=== PATIENT | female | born 1970 ===

== ENCOUNTER → 2022-12-01 | Outpatient (CLI) | payer BC ==
[2022-12-01 08:52] LABS: Urine Bacteria NONE SEEN /hpf (None Seen); Urine Blood Negative /uL (Negative); Urine Mucus FEW (None Seen); Urine Specific Gravity 1.021 (1.001-1.035); Urine WBC 1 /hpf (0 - 5)
[2022-12-01 09:00] LABS: Basophils # (auto) 0 10 ^3/uL (0-0.2); Basophils % (auto) 0.4 % (0.0-2.0); Eosinophils # (auto) 0.1 10 ^3/uL (0-0.8); Eosinophils % (auto) 1.4 % (0.0-7.0); Hematocrit 38.7 % (36.0-46.0); Hemoglobin 13.1 g/dL (12.2-16.2); Mean Corpuscular Hemoglobin 28.5 pg (28.0-32.0); Mean Corpuscular Hgb Conc. 33.8 g/dL (32.0-36.0); Mean Corpuscular Volume 84.3 fL (80.0-100.0); Monocytes # (auto) 0.8 10 ^3/uL (0-1.3); Monocytes % (auto) 7.1 % (0.0-12.0); Neutrophils # (auto) 6.7 10 ^3/uL (1.6-8.6); Neutrophils % (auto) 63.1 % (37.0-80.0); Nucleated Red Blood Cells % 0.1 %; Red Blood Cells 4.59 10^6/uL (4.0-5.20); Red Cell Distribution Width 14.3 % (11.8-14.3); White Blood Cell 10.6 10^3/uL (4.4-10.8)
[2022-12-01 09:50] LABS: Ferritin 31.1 ng/mL (10-322)
[2022-12-01 09:51] LABS: Folate (Folic Acid) 9.47 ng/mL (5.38-24); T3 Total 0.82 ng/mL (0.60-1.81)
[2022-12-01 12:21] LABS: Albumin 3.7 g/dL (3.4-5.0); BUN/Creatinine Ratio 22.5 (10.0-20.0); Calcium 9.2 mg/dL (8.5-10.1)
[2022-12-01 12:24] LABS: Bilirubin, Total 0.4 mg/dL (0.2-1.0); Total Protein 7.8 g/dL (6.4-8.2)
== END | disposition home or self-care (01) ==
LOC: LAB 08:21
PROVIDERS: ATTEND Internal Medicine
DX: E66.01 Morbid (severe) obesity due to excess calories (principal); G35 Multiple sclerosis
CPT/HCPCS: 36415; 80053; 80061; 81001; 82607; 82728; 82746; 83036; 83540; 84436; 84443; 84480; 85025; 87086

== ENCOUNTER → 2024-09-17 | Outpatient (CLI) | payer BC ==
[2024-09-17 07:36] LABS: Creatinine, Urine 234.87 mg/dL (30.0-125.0)
[2024-09-17 07:38] LABS: Microalb/Creat Ratio, Urine < 3.0
[2024-09-17 07:41] LABS: Alanine Aminotransferase 14 U/L (7-40); Alkaline Phosphatase 109 U/L (46-116); Anion Gap 7 (5-15); BUN/Creatinine Ratio 18.5 (10.0-20.0); Blood Urea Nitrogen 17 mg/dL (9-23); Carbon Dioxide 27 mmol/L (20-31); Chloride 106 mmol/L (98-107); Glucose 105 mg/dL (74-106); Potassium 4.2 mmol/L (3.5-5.1); Sodium 140 mmol/L (136-145); Total Protein 7.2 g/dL (5.7-8.2)
[2024-09-17 07:42] LABS: Albumin 4.6 g/dL (3.2-4.8); Aspartate Aminotransferase 15 U/L (13-40); Bilirubin, Total 0.3 mg/dL (0.2-1.0); Cholesterol 198 mg/dL (< 200)
[2024-09-17 07:46] LABS: HDL Cholesterol 39 mg/dL (40-59); LDL Cholesterol 132 mg/dL (< 100); Triglycerides 188 mg/dL (< 150)
== END | disposition home or self-care (01) ==
LOC: LAB 06:46
PROVIDERS: ATTEND Internal Medicine
DX: N95.0 Postmenopausal bleeding (principal); N18.9 Chronic kidney disease, unspecified; E55.9 Vitamin D deficiency, unspecified; E78.5 Hyperlipidemia, unspecified; R73.9 Hyperglycemia, unspecified
CPT/HCPCS: 36415; 80053; 80061; 82043; 82570; 82672; 83036; 84436; 84443; 84480